=== PATIENT | male | born 1970 | race Caucasian/White ===

== ENCOUNTER 2017-06-04 19:26 | Emergency (ER) | payer MEDICAID ==
[~2017-06-04] VITALS: Ht 190.5 cm; Wt 103.0 kg
[2017-06-04 19:29] VITALS: BP 135/85
== END 2017-06-04 20:51 | disposition home or self-care (01) ==
LOC: ED 20:45
DX: J02.8 Acute pharyngitis due to other specified organisms (principal)
CPT/HCPCS: 87081; 87880; 99284